=== PATIENT | female | born 2000 | race Caucasian/White ===

== ENCOUNTER 2022-01-29 04:08 | Emergency (ER) | payer OTHER ==
--- NOTE | 2022-01-29 04:48 | ED ---
General Adult HPI <Emmanuel Garcia - Last Filed: 01/29/22 07:51> <Xavier Myles - Last Filed: 01/29/22 21:49> - General Stated complaint: Abd Pain Time Seen by Provider: 01/29/22 04:17 - History of Present Illness Initial comments: Dictation was produced using [employer] dictation software. please excuse any grammatical, word or spelling errors. Chief Complaint: 21-year-old female presents to the emergency department with acute onset right lower quadrant abdominal pain History of Present Illness: 21-year-old female presents emergency department for acute right lower quadrant abdominal pain. Patient also complains of associated symptoms of urinary urgency patient denies any dysuria. She does complain of nausea. No fevers. No diarrhea. Patient denies any history of abdominal surgery. Patient states that she is not because she just had her period. The ROS documented in this emergency department record has been reviewed and confirmed by me. Those systems with pertinent positive or negative responses have been documented in the HPI. All other systems are other negative and/or noncontributory. PHYSICAL EXAM: General Impression: Alert and oriented x3, not in acute distress HEENT: Normocephalic atraumatic, extra-ocular movements intact, pupils equal and reactive to light bilaterally, mucous membranes moist. Cardiovascular: Heart regular rate and rhythm Chest: Able to complete full sentences, no retractions, no tachypnea Abdomen: abdomen soft, palpatory tenderness to McBurney's point, no rebound tenderness non-distended, no organomegaly Musculoskeletal: Pulses present and equal in all extremities, no peripheral edema Motor: no focal deficits noted Neurological: CN II-XII grossly intact, no focal motor or sensory deficits noted Skin: Intact with no visualized rashes Psych: Normal affect and mood ED course: 21-year-old female presents emergency Department with acute onset right lower quadrant abdominal pain. Laboratory evaluation obtained. CBC unremarkable. Metabolic panel is unremarkable. No leukocytosis. Urinalysis shows large amount of blood with greater than 182 red blood cells. Computed tomography scan was reviewed and did show findings suspicious for nephrolithiasis. Patient is signed out to Dr. Garcia for follow-up of radiology read. Patient given fluids and analgesics. (Xavier Myles) - Related Data Previous Rx's Medication Instructions Recorded Ketorolac [Toradol] 10 mg PO Q6HR #15 tab 01/29/22 Tamsulosin [Flomax] 0.4 mg PO DAILY #10 cap 01/29/22 Allergies Allergy/AdvReac Type Severity Reaction Status Date / Time No Known Allergies Allergy Verified 01/29/22 05:05 Review of Systems ROS Other: All systems not noted in ROS Statement are negative. <Emmanuel Garcia - Last Filed: 01/29/22 07:51> ROS Other: All systems not noted in ROS Statement are negative. <Xavier Myles - Last Filed: 01/29/22 21:49> ROS Statement: Those systems with pertinent positive or pertinent negative responses have been documented in the HPI. Course Vital Signs 01/29/22 01/29/22 05:05 08:40 Temperature 98 F Pulse Rate 77 72 Respiratory 15 18 Rate Blood Pressure 142/67 138/72 O2 Sat by Pulse 98 98 Oximetry Medical Decision Making - Lab Data Result diagrams: 01/29/22 04:52 01/29/22 04:52 <Emmanuel Garcia - Last Filed: 01/29/22 07:51> - Lab Data Result diagrams: 01/29/22 04:52 01/29/22 04:52 <Xavier Myles - Last Filed: 01/29/22 21:49> - Medical Decision Making Computed tomography scan shows a small 2 mm kidney stone. It is in the distal right ureter with mild hydroureter. (Emmanuel Garcia) - Lab Data Lab Results 01/29/22 01/29/22 01/29/22 Range/Units 04:52 04:52 05:46 WBC 8.0 (3.8-10.6) k/uL RBC 4.75 (3.80-5.40) m/uL Hgb 14.3 (11.4-16.0) gm/dL Hct 42.0 (34.0-46.0) % MCV 88.4 (80.0-100.0) fL MCH 30.2 (25.0-35.0) pg MCHC 34.1 (31.0-37.0) g/dL RDW 13.0 (11.5-15.5) % Plt Count 303 (150-450) k/uL MPV 8.1 Neutrophils % 64 % Lymphocytes % 27 % Monocytes % 5 % Eosinophils % 1 % Basophils % 1 % Neutrophils # 5.1 (1.3-7.7) k/uL Lymphocytes # 2.2 (1.0-4.8) k/uL Monocytes # 0.4 (0-1.0) k/uL Eosinophils # 0.1 (0-0.7) k/uL Basophils # 0.0 (0-0.2) k/uL Sodium 137 (137-145) mmol/L Potassium 4.0 (3.5-5.1) mmol/L Chloride 102 (98-107) mmol/L Carbon Dioxide 21 L (22-30) mmol/L Anion Gap 14 mmol/L BUN 10 (7-17) mg/dL Creatinine 0.79 (0.52-1.04) mg/dL Est GFR (CKD-EPI)AfAm >90 (>60 ml/min/1.73 sqM) Est GFR (CKD-EPI)NonAf >90 (>60 ml/min/1.73 sqM) Glucose 121 H (74-99) mg/dL Calcium 9.8 (8.4-10.2) mg/dL Total Bilirubin 1.0 (0.2-1.3) mg/dL AST 37 H (14-36) U/L ALT 46 H (4-34) U/L Alkaline Phosphatase 80 (38-126) U/L Total Protein 7.2 (6.3-8.2) g/dL Albumin 4.7 (3.5-5.0) g/dL Lipase 72 (23-300) U/L Urine Color Light Red Urine Appearance Cloudy H (Clear) Urine pH 5.5 (5.0-8.0) Ur Specific [place] 1.032 (1.001-1.035) Urine Protein 1+ H (Negative) Urine Glucose (UA) Negative (Negative) Urine Ketones Negative (Negative) Urine Blood Large H (Negative) Urine Nitrite Negative (Negative) Urine Bilirubin Negative (Negative) Urine Urobilinogen <2.0 (<2.0) mg/dL Ur Leukocyte Esterase Negative (Negative) Urine RBC >182 H (0-5) /hpf Urine WBC 2 (0-5) /hpf Ur Squamous Epith Cells 6 H (0-4) /hpf Urine Mucus Many H (None) /hpf Urine HCG, Qual (Not Detectd) 01/29/22 Range/Units 05:46 WBC (3.8-10.6) k/uL RBC (3.80-5.40) m/uL Hgb (11.4-16.0) gm/dL Hct (34.0-46.0) % MCV (80.0-100.0) fL MCH (25.0-35.0) pg MCHC (31.0-37.0) g/dL RDW (11.5-15.5) % Plt Count (150-450) k/uL MPV Neutrophils % % Lymphocytes % % Monocytes % % Eosinophils % % Basophils % % Neutrophils # (1.3-7.7) k/uL Lymphocytes # (1.0-4.8) k/uL Monocytes # (0-1.0) k/uL Eosinophils # (0-0.7) k/uL Basophils # (0-0.2) k/uL Sodium (137-145) mmol/L Potassium (3.5-5.1) mmol/L Chloride (98-107) mmol/L Carbon Dioxide (22-30) mmol/L Anion Gap mmol/L BUN (7-17) mg/dL Creatinine (0.52-1.04) mg/dL Est GFR (CKD-EPI)AfAm (>60 ml/min/1.73 sqM) Est GFR (CKD-EPI)NonAf (>60 ml/min/1.73 sqM) Glucose (74-99) mg/dL Calcium (8.4-10.2) mg/dL Total Bilirubin (0.2-1.3) mg/dL AST (14-36) U/L ALT (4-34) U/L Alkaline Phosphatase (38-126) U/L Total Protein (6.3-8.2) g/dL Albumin (3.5-5.0) g/dL Lipase (23-300) U/L Urine Color Urine Appearance (Clear) Urine pH (5.0-8.0) Ur Specific [place] (1.001-1.035) Urine Protein (Negative) Urine Glucose (UA) (Negative) Urine Ketones (Negative) Urine Blood (Negative) Urine Nitrite (Negative) Urine Bilirubin (Negative) Urine Urobilinogen (<2.0) mg/dL Ur Leukocyte Esterase (Negative) Urine RBC (0-5) /hpf Urine WBC (0-5) /hpf Ur Squamous Epith Cells (0-4) /hpf Urine Mucus (None) /hpf Urine HCG, Qual Not Detected (Not Detectd) Disposition Is patient prescribed a controlled substance at d/c from ED?: No Time of Disposition: 07:52 <Emmanuel Garcia - Last Filed: 01/29/22 07:51> Is patient prescribed a controlled substance at d/c from ED?: No <Xavier Myles - Last Filed: 01/29/22 21:49> Clinical Impression: Kidney stone Disposition: HOME SELF-CARE Condition: Good Instructions (If sedation given, give patient instructions): Kidney Stones (ED) Prescriptions: Tamsulosin [Flomax] 0.4 mg PO DAILY #10 cap Ketorolac [Toradol] 10 mg PO Q6HR #15 tab Referrals: Shefali Roque DO [Primary Care Provider] - 1-2 days
[2022-01-29 05:01] LABS: Basophils % (A) 1 %; Eosinophils # (A) 0.1 k/uL (0-0.7); Eosinophils % (A) 1 %; HGB 14.3 gm/dL (11.4-16.0); Lymphocytes # (A) 2.2 k/uL (1.0-4.8); Lymphocytes % (A) 27 %; MCH 30.2 pg (25.0-35.0); MCHC 34.1 g/dL (31.0-37.0); MCV 88.4 fL (80.0-100.0); Mean Platelet Volume 8.1; Monocytes # (A) 0.4 k/uL (0-1.0); Monocytes % (A) 5 %; Neutrophils # (A) 5.1 k/uL (1.3-7.7); Neutrophils % (A) 64 %; Platelet Count 303 k/uL (150-450); RBC 4.75 m/uL (3.80-5.40)
[2022-01-29 05:07] VITALS: TEMP 98
[2022-01-29] MEDS ORDERED: MORPHINE SULFATE 4 MG/ML SYRINGE IV STA (05:08)
[2022-01-29] MEDS ORDERED: ONDANSETRON 4 MG/2 ML VIAL IVP STA (05:11)
[2022-01-29] MEDS ORDERED: SODIUM CHLORIDE 0.9% 1,000 ML IV STA (05:11)
[2022-01-29 05:13] LABS: ALT 46 U/L (4-34); AST 37 U/L (14-36); African American GFR (CKD) >90 (>60 ml/min/1.73 sqM); Albumin 4.7 g/dL (3.5-5.0); Alkaline Phosphatase 80 U/L (38-126); Anion Gap 14 mmol/L; Blood Urea Nitrogen 10 mg/dL (7-17); Calcium 9.8 mg/dL (8.4-10.2); Carbon Dioxide 21 mmol/L (22-30); Chloride 102 mmol/L (98-107); Glucose 121 mg/dL (74-99); Lipase 72 U/L (23-300); Non-African American GFR(CKD) >90 (>60 ml/min/1.73 sqM); Sodium 137 mmol/L (137-145); Total Protein 7.2 g/dL (6.3-8.2)
[2022-01-29 06:02] LABS: Appearance,Urine Cloudy (Clear); Bilirubin,Urine Negative (Negative); Blood,Urine Large (Negative); Color,Urine Light Red; Glucose,Urine (UA) Negative (Negative); Ketones,Urine Negative (Negative); Leukocyte Esterase,Urine Negative (Negative); Mucus,Urine Many /hpf; Nitrite,Urine Negative (Negative); PH, Urine 5.5 (5.0-8.0); Protein,Urine 1+ (Negative); RBC,Urine >182 /hpf (0-5); Specific Gravity,Urine 1.032 (1.001-1.035); Squamous Epithelial Cell,Urine 6 /hpf (0-4); Urobilinogen,Urine <2.0 mg/dL (<2.0); WBC,Urine 2 /hpf (0-5)
[2022-01-29] MEDS ORDERED: KETOROLAC 15 MG/ML 1 ML VIAL IVP STA (06:05)
--- NOTE | 2022-01-29 07:29 | CT ---
EXAMINATION TYPE: CT abdomen pelvis wo con DATE OF EXAM: 01/29/2022 COMPARISON: None INDICATION: Right flank pain DLP: 8 819.8 mGycm, Automated exposure control for dose reduction was used. CONTRAST: 0 mL of Isovue 300. Study performed without Oral Contrast TECHNIQUE: Axial images were obtained from above the diaphragm to the pubic rami in the axial plane a t 5 mm thick sections. Reconstructed images are reviewed on the computer in the coronal plane. FINDINGS: Limited CT sections are obtained the lung bases. The lung bases are clear. CT ABDOMEN: Liver: Normal Spleen: Normal Pancreas: Normal Adrenal glands: The adrenal glands are normal. Gallbladder: Normal Kidneys: There is a 0.2 cm nonobstructing renal stone inferior pole right kidney. Some additional pun ctate inferior pole renal stones are present. Right kidney appears prominent with mild hydronephrosis and hydroureter. Punctate 0.2 cm distal renal stone may be present on the right, series 201 image 12 8. Aorta: Normal Inferior vena cava: Normal. CT PELVIS: Loops of bowel within the abdomen and pelvis are normal. There are loops of bowel which are incom pletely distended or lack oral contrast limiting their evaluation. Appendix: Identified. No dilated tubular structure or inflammatory changes are evident. Urinary bladder: Normal. Genitourinary structures: Uterus unremarkable. Adnexa are normal. Osseous structures: No suspicious lytic or sclerotic lesions. IMPRESSIONS: 1. 0.2 cm partially obstructing distal right ureteral stone. There is mild hydronephrosis and hydrou reter. 2. Additional nonobstructing inferior pole right renal stones.
[2022-01-29] MEDS ORDERED: ACET/COD 300 MG/30 MG STARTER PACK 6 TAB BTL PO STA (07:53)
[2022-01-29 08:42] VITALS: BP 138/72; PULSE 72; RESP 18
== END 2022-01-29 08:40 | disposition home or self-care (01) ==
LOC: EC 04:08
DX: N20.0 Calculus of kidney (principal)
CPT/HCPCS: 36415; 80053; 83690; 85025; 81001; 81025; 74176; 99284; 96374; 96375; 96361; J2270; J2405; J1885

== ENCOUNTER → 2023-12-29 | Outpatient (CLI) | payer BC ==
--- NOTE | 2023-12-29 09:42 | CT ---
EXAMINATION TYPE: CT brain wo con DATE OF EXAM: 12/29/2023 COMPARISON: None HISTORY: 23-year-old female R51.9, headaches, migraines TECHNIQUE: Examination was done in axial plane without intravenous contrast. Coronal and sagittal r econstructions performed. CT DLP: 1029.9 mGycm Automated exposure control for dose reduction was used. FINDINGS: There is no evidence of acute intracranial hemorrhage, acute ischemic changes, mass, mass-effect, or extra-axial fluid collection. There is no effacement of cerebral sulci or basal subarachnoid cister ns. There is no hydrocephalus. There is no midline shift. Up-white matter distinction is preserv ed. Leftward nasal septal deviation. Paranasal sinuses and mastoid air cells well pneumatized. Orbits and globes are intact. IMPRESSION: No acute intracranial abnormality seen. Leftward nasal septal deviation.
== END | disposition home or self-care (01) ==
LOC: RADCTMAIN 07:26
PROVIDERS: ATTEND Family Medicine
DX: R51.9 Headache, unspecified
CPT/HCPCS: 70450